=== PATIENT | female | born 1980 | race Caucasian/White ===

== ENCOUNTER 2018-02-24 21:04 | Emergency (ER) | payer BC ==
[2018-02-24] MEDS ORDERED: SKIN ADHESIVE (DERMABOND) 1 EACH TP ONE (21:31)
--- NOTE | 2018-02-24 21:36 | EDPHY ---
H & P Stated Complaint: fell and hit head no LOC but one episode of emesis and lac - Personal History LMP (Females 10-55): 8-14 Days Ago Current Tetanus/Diphtheria Vaccine: Yes Current Tetanus Diphtheria and Acellular Pertussis (TDAP): Yes - Medical/Surgical History Hx Asthma: No Hx Chronic Respiratory Disease: No Hx Diabetes: No Hx Cardiac Disease: No Hx Renal Disease: No Hx Cirrhosis: No Hx Alcoholism: No Hx HIV/AIDS: No Hx Splenectomy or Spleen Trauma: No Other PMH: denies - Social History Smoking Status: Never smoked Time Seen by Provider: 02/24/18 21:24 HPI/ROS: CHIEF COMPLAINT: Left forehead injury and laceration HISTORY OF PRESENT ILLNESS: 37-year-old female via private vehicle complaining of acute left lateral eyebrow laceration and head injury which occurred approximately 2 hr ago. She was walking a dog when the dog started running quickly and she could not keep up causing her to fall, impacting the left frontal region. No loss of consciousness. No amnesia. Positive alcohol use preceding this. 1 hr after the incident she vomited. REVIEW OF SYSTEMS: 10 systems reviewed and negative with the exception of the elements mentioned in the history of present illness PAST MEDICAL/SURGICAL HISTORY: no anticoagulant use, no relevant medical/ surgical history. Tetanus up-to-date SOCIAL HISTORY: denies alcohol use at time of incident PHYSICAL EXAM 1) GENERAL: Well-developed, well-nourished, alert and oriented. Appears to be in no acute distress. Answering questions appropriately. 2) HEAD: Normocephalic, left lateral eyebrow 1.5 cm laceration, linear superficial 3) HEENT: Pupils equal, round, reactive to light bilaterally. Negative Horners. Nasopharynx, oropharynx, clear. No deformity or angulation of nose. No septal hematoma. No rhinorrhea. No oral trauma. Ears bilaterally with normal tympanic membranes. No hemotympanum. No fluid or blood in the external auditory canal. No raccoon eyes. No Suazo sign. Teeth are normally aligned with no gross malocclusion, TMJ bilaterally nontender, facial bones nontender including the zygomatic arch, maxilla mandible. 4) NECK: No cervical collar is on. Posterior cervical spine is nontender, no stepoff, no effusion. Full range of motion which does not elicit any midline cervical spine pain, no posterior midline tenderness, no step-off. 5) LUNGS: Clear to auscultation bilaterally, no wheezes, no rhonchi, no retractions. No obvious signs of trauma. No chest wall pain. No flaring, no grunting. Moving symmetrically. No crepitus. 6) HEART: [Regular rate and rhythm, 7) ABDOMEN: No guarding, no rebound, no focal tenderness, no peritoneal signs, no signs of trauma, no ecchymosis 8) MUSCULOSKELETAL: Moving all extremities, no focal areas of tenderness, no obvious trauma. 9) BACK: No midline vertebral tenderness, no fluctuance, no step-off, no obvious trauma, no visual or palpable abnormality. 10) SKIN: No laceration. No abrasion DIFFERENTIAL DIAGNOSIS: Not necessarily in any particular order, my differential diagnosis includes, but is not limited to, concussion, skull fracture, intraparenchymal contusion, subarachnoid, subdural and epidural hematoma. The patient understands that this diagnosis is provisional and can never be 100% accurate. (Surendra Covington) Constitutional: Initial Vital Signs Temperature (C) 36.9 C 02/24/18 21:09 Heart Rate 112 H 02/24/18 21:09 Respiratory Rate 16 02/24/18 21:09 Blood Pressure 122/80 H 02/24/18 21:09 O2 Sat (%) 95 02/24/18 21:09 O2 Delivery Mode Room Air Allergies/Adverse Reactions: No Known Allergies Allergy (Unverified 02/24/18 21:12) Home Medications: Medication Instructions Recorded NK [No Known Home Meds] 02/24/18 Medical Decision Making - Diagnostics Imaging Results: Imaging Impressions Head CT 02/24/18 21:36 Impression: 1. Normal CT brain without contrast. 2. No skull fracture. Findings and recommendations discussed with Emergency Department physicianSurendra at 22:08 hour, 02/24/2018. Final report concurs with initial preliminary interpretation. images reviewed myself (Surendra Covington) Procedures: Procedure: Laceration repair with tissue adhesive Verbal consent was obtained from the patient. The 1.5 cm laceration on the left lateral eyebrow. The wound was scrubbed and explored to its base with a gloved finger. No foreign body seen, no foreign bodies palpated. There were no deep structures involved. The wound was repaired with tissue adhesive. The procedure was performed by myself. Patient has been informed that scarring will occur, although efforts have been made to minimize this. (Surendra Covington) ED Course/Re-evaluation: 9:31 p.m.: Head CT ordered in this patient for trauma for the following indication: Vomiting, fall greater than 3 feet. 10:08 p.m.: CT interpreted by radiologist is negative for posttraumatic sequelae 10:09 p.m.: Re-evaluation. Patient answering questions appropriately. She will be discharged with my usual customary head injury precautions and instructions. I saw this patient independently based on established practice protocols. Care of patient under supervision of secondary supervising physician Dr Hannon. (Surendra Covington) Other Provider: The patient was evaluated and managed by the Physician Java Technical Architect. My co- signature indicates that I have reviewed this chart and I agree with the findings and plan of care as documented. I am the secondary supervising physician. (Katie Hannon) Departure - Departure Disposition: Home, Routine, Self-Care Clinical Impression: Forehead laceration Qualifiers: Encounter type: initial encounter Qualified Code(s): S01.81XA - Laceration without foreign body of other part of head, initial encounter Condition: Good Instructions: Laceration (ED), Skin Adhesive Care (ED) Additional Instructions: ALTHOUGH THERE IS NO EVIDENCE OF SERIOUS HEAD INJURY AT THIS TIME, DELAYED SIGNS CAN APPEAR 24 TO 48 HOURS AFTER INJURY. PLEASE RETURN TO THE EMERGENCY DEPARTMENT (ED) IMMEDIATELY IF YOU HAVE INCREASED HEADACHE, PERSISTENT HEADACHE , VOMITING, WEAKNESS, CONFUSION OR VISUAL PROBLEMS. WE RECOMMEND THAT YOU DO NOT RESUME CONTACT SPORTS OR ACTIVITIES THAT TAKE COORDINATION OR BALANCE SUCH SKIING OR RIDING A BICYCLE UNTIL CLEARED TO DO SO BY YOUR DOCTOR OR BY A NEUROLOGIST. Referrals: Nina Headley MD [Medical Doctor] - As per Instructions
[2018-02-24 22:25] VITALS: BP 122/79
== END 2018-02-24 22:24 | disposition home or self-care (01) ==
PROC: 0HQ1XZZ Repair Face Skin, External Approach (ICD-10-PCS; principal; 2018-02-24)
DX: S01.112A Laceration without foreign body of left eyelid and periocular area, initial encounter (principal); W01.0XXA Fall on same level from slipping, tripping and stumbling without subsequent striking against object, initial encounter; Y93.K1 Activity, walking an animal